=== PATIENT | female | born 1970 | race Two or more races ===

== ENCOUNTER 2024-01-18 13:20 | Emergency (ER) | payer MEDICAID, SELFPAY ==
[2024-01-18 13:27] VITALS: BP 151/98; PULSE 84; TEMP 36.9; O2SAT 99; BMI 43.0
--- NOTE | 2024-01-18 13:32 | ED.GENADUL1 ---
HPI HPI - General Adult General Chief complaint: Skin/Abscess/Foreign Body Stated complaint: DOG BITE Time Seen by Provider: 01/18/24 13:27 Source: patient Mode of arrival: ambulance Limitations: no limitations History of Present Illness HPI narrative: Patient is a 53-year-old Female who presents to the emergency department by ambulance for a reported dog bite to her right thumb. Patient states she was driving, they stopped at a rest stop and she let her dog out of the car to go to the bathroom. She states that the dog playfully nipped at her right thumb where she had a slow healing incision from a previous orthopedic surgery. She states that the incision has opened up and it was very painful causing her to have a panic attack on the side of the road and call 911. She has Percocet for pain which she takes chronically but states she was unable to take it because she was driving so she called 911 to bring her to the ER. Her tetanus is up-to-date. She did not sustain any significant bite to the right thumb and there has not been any bleeding. Related Data Previous Rx's ?Medication ?Instructions ?Recorded ciprofloxacin HCl 500 mg tablet 500 mg PO BID 7 days #14 tabs 01/18/24 (Cipro) metronidazole 500 mg tablet 500 mg PO Q12H 7 days #14 tabs 01/18/24 Allergies Allergy/AdvReac Type Severity Reaction Status Date / Time amoxicillin AdvReac Mild Verified 01/18/24 13:27 hydrocodone AdvReac Mild Hives Verified 01/18/24 13:27 meperidine [From Demerol] AdvReac Mild Verified 01/18/24 13:27 Penicillins AdvReac Mild Verified 01/18/24 13:27 Opioid HPI Opioid Management Most Recent Opioid Data: No Data to Display Review of Systems ROS Constitutional Denies: fever or chills Ears, nose, mouth, and throat Denies: throat pain or nasal congestion Respiratory Denies: shortness of breath Gastrointestinal Denies: nausea or vomiting Integumentary/Breast Reports: skin pain and skin tenderness; Denies: rash Neurological Denies: headache Hematologic/Lymphatic Denies: easy bruising or easy bleeding Exam Narrative Exam Narrative: Gen.: Awake, alert, in no distress Head: Normocephalic, atraumatic ENT: Moist mucous membranes Respiratory: No respiratory distress Extremities: Moves extremities equally, Patient with a callused healed incision over the dorsum of the right thumb that is slightly widened, there are no puncture wounds or deep lacerations. No subcutaneous tissue exposure or open wounds. No bleeding or red streaking. No circumferential swelling. Normal flexion and extension at the IP joint of the right thumb. No evidence of other injuries. Psych: Patient with flight of ideas, anxious and needs redirection multiple times during history Neuro: No focal neuro deficit Skin: Warm, dry Constitutional Vital Signs, click to edit/add: Last Vital Signs Temp 98.4 F 01/18/24 13:27 Pulse 84 01/18/24 13:27 Resp 18 01/18/24 13:27 BP 151/98 H 01/18/24 13:27 Pulse Ox 99 01/18/24 13:27 O2 Del Method Room Air 01/18/24 13:27 Course Vital Signs Vital signs: Vital Signs Temperature 98.4 F 01/18/24 13:27 Pulse Rate 84 01/18/24 13:27 Respiratory Rate 18 01/18/24 13:27 Blood Pressure 151/98 H 01/18/24 13:27 Pulse Oximetry 99 01/18/24 13:27 Oxygen Delivery Method Room Air 01/18/24 13:27 Temperature 98.4 F 01/18/24 13:27 Pulse Rate 84 01/18/24 13:27 Respiratory Rate 18 01/18/24 13:27 Blood Pressure 151/98 H 01/18/24 13:27 Pulse Oximetry 99 01/18/24 13:27 Oxygen Delivery Method Room Air 01/18/24 13:27 Medical Decision Making MDM Narrative Medical decision making narrative: There is no evidence of significant injury, dog bite or puncture wound to the right thumb. Patient is adamant that the incision where she had surgery has now opened as a result of the bite although there is no laceration, abrasion or bleeding noted. No bleeding wounds. Patient states her tetanus is up-to-date. Her vital signs are stable, there is no indication for x-rays, suture repair or further treatment. She was given Cipro and Flagyl as she is penicillin allergic for antibiotic coverage. She should follow-up with her surgeon tomorrow as she is scheduled, antibiotic ointment and dressing applied to the area and she is neurovascularly intact. While in the emergency department, nursing staff attempted to assist the patient with getting a ride home as she called 911 to come to the emergency department for her wound. She states she does not know how she will get home. She became anxious, argumentative with nursing staff. Nursing corporate physical security supervisor presented to the bedside and gave the patient her medication and discharged her. Medical Records Medical records reviewed: Yes I reviewed the patient's medical records Discharge Plan Discharge Stand Alone Forms: Portal Instructions Chief Complaint: Skin/Abscess/Foreign Body Clinical Impression: Dog bite of finger Patient Disposition: Home, Self-Care Time of Disposition Decision: 13:29 Condition: Good Prescriptions / Home Meds: New metronidazole 500 mg tablet 500 mg PO Q12H 7 Days Qty: 14 0RF ciprofloxacin HCl [Cipro] 500 mg tablet 500 mg PO BID 7 Days Qty: 14 0RF Print Language: Arabic Instructions: Animal Bite (ED) Additional Instructions: Follow up with your surgeon tomorrow as scheduled, please finish antibiotics and apply antibiotic ointment to the area. Use soap and water to clean.
--- NOTE | 2024-01-18 13:36 | PC.NURSE ---
Attempted to finish triage, this RN asked patient where patients car was due to possibly being able to assist with finding a ride to patients car. Pt states I'm not answering your curiosity questions. Now you just gave me more anxiety about my dog. I dont need your help. Im going to the bathroom and I know where its at because I used to bring my dad here. Patient walked towards the door and slammed the door into this RN. Patient ambulated to the bathroom and back to the room without difficulty.
[2024-01-18] MEDS: BACITRACIN 0.9 GM PACKET 1 PACKET TOPICAL (13:41)
[2024-01-18] MEDS: OXYCODONE HCL/ACETAMINOPHEN 5MG/325MG 1 TAB PO (13:42)
== END 2024-01-18 14:01 | disposition home or self-care (01) ==
LOC: ER 13:42
PROVIDERS: Emergency Provider Emergency Medicine Emergency Medical Services
DX: S60.371A Other superficial bite of right thumb, initial encounter (principal); W54.0XXA Bitten by dog, initial encounter
CPT/HCPCS: 99283